=== PATIENT | female | born 1960 | race Caucasian/White ===

== ENCOUNTER 2017-07-01 22:59 | Emergency (ER) | payer OTHER ==
--- NOTE | 2017-07-02 01:08 | ER Document Report ---
ED Respiratory Problem - General Chief Complaint: Cough Stated Complaint: COUGH Time Seen by Provider: 07/02/17 00:17 Notes: Patient is a 57-year-old female who comes emergency department for chief complaint of cough and pain with cough. She states that she was referred here by urgent care. She states initially she was seen by urgent care, she had antibiotics (azithromycin) and she had been sick for a week with sore throat, cough, congestion. Over the left side of her chest with cough and she has to hold the area with cough because it has become sore. She denies shortness of breath, pain otherwise, lightheadedness, palpitations, nausea or vomiting. She is a type I diabetic, has an insulin pump, she denies any personal or family history of [place]. She denies any lower extremity swelling, recent travel, recent surgery, or history of blood clot. She does not smoke. She states she had a mastectomy but she has been cleared from cancer for years. TRAVEL OUTSIDE OF THE [place] IN LAST 30 DAYS: No - Related Data Allergies/Adverse Reactions: metoclopramide HCl [From Reglan] Allergy (Verified 07/01/17 23:00) prochlorperazine edisylate [From Compazine] Allergy (Verified 07/01/17 23:00) prochlorperazine maleate [From Compazine] Allergy (Verified 07/01/17 23:00) rofecoxib [From Vioxx] Allergy (Verified 07/01/17 23:00) Past Medical History - General Information source: Patient - Social History Smoking Status: Never Smoker Chew tobacco use (# tins/day): No Frequency of alcohol use: None Drug Abuse: None Lives with: Alone Family History: Reviewed & Not Pertinent Patient has suicidal ideation: No Patient has homicidal ideation: No Endocrine Medical History: Reports: Hx Diabetes Mellitus Type 1 Renal/ Medical History: Denies: Hx Peritoneal Dialysis Past Surgical History: Reports: Hx Mastectomy - left - Immunizations Hx Diphtheria, Pertussis, Tetanus Vaccination: Yes Review of Systems - Review of Systems Constitutional: No symptoms reported EENT: No symptoms reported Cardiovascular: See HPI Respiratory: See HPI Gastrointestinal: No symptoms reported Genitourinary: No symptoms reported Female Genitourinary: No symptoms reported Musculoskeletal: No symptoms reported Skin: No symptoms reported Hematologic/Lymphatic: No symptoms reported Neurological/Psychological: No symptoms reported Physical Exam - Vital signs Vitals: Temp Pulse Resp BP Pulse Ox 98 F 84 18 166/79 H 96 07/01/17 23:35 07/01/17 23:35 07/01/17 23:35 07/01/17 23:35 07/01/17 23:35 Interpretation: Normal - General General appearance: Appears well, Alert - HEENT Head: Normocephalic, Atraumatic Eyes: Normal Pupils: PERRL - Respiratory Respiratory status: No respiratory distress. No: Respiratory distress, Labored , Tachypnea Chest status: Tender - Tender over the left anterior and lateral chest wall, reproducible, otherwise unremarkable, Pain with cough Breath sounds: No: Decreased air movement, Wheezing Chest palpation: Normal - Cardiovascular Rhythm: Regular. No: Tachycardia Heart sounds: Normal auscultation, S1 appreciated, S2 appreciated Murmur: No Gallop: None auscultated Normal capillary refill: Yes - Abdominal Inspection: Normal Distension: No distension Bowel sounds: Normal Tenderness: Nontender Organomegaly: No organomegaly - Back Back: Normal, Nontender - Extremities General upper extremity: Normal inspection, Nontender, Normal color, Normal ROM , Normal temperature General lower extremity: Normal inspection, Nontender, Normal color, Normal ROM , Normal temperature, Normal weight bearing. No: Arianna's sign - Neurological Neuro grossly intact: Yes Cognition: Normal Orientation: AAOx4 [place]sie Coma Scale Eye Opening: Spontaneous [place] Coma Scale Verbal: Oriented [place] Coma Scale Motor: Obeys Commands [place] Coma Scale Total: 15 Speech: Normal Motor strength normal: LUE, RUE, LLE, RLE Sensory: Normal - Psychological Associated symptoms: Normal affect, Normal mood - Skin Skin Temperature: Warm Skin Moisture: Dry Skin Color: Normal Course - Re-evaluation Re-evalutation: Patient well-appearing on exam. Occasional cough which is painful but otherwise she denies any symptoms. EKG shows sinus rhythm with no signs of right heart strain, no T-wave inversions or ST segment changes in consecutive leads. Patient just had a normal chest x-ray reportedly. Patient is not tachycardic, vital signs unremarkable. I did offer to perform laboratory workup including d-dimer, however patient discussed this, she states she would prefer not to. Based on her examination she appears to be have bronchitis which is resolving, her lack of symptoms, and her lack of risk factors, instead of performing additional workup at this time I offered medication, patient declined most of them, discussed follow-up, discussed return precautions in detail. Patient states satisfaction and agreement with plan. - Vital Signs Vital signs: Temp Pulse Resp BP Pulse Ox 97.8 F 84 18 140/75 H 97 07/02/17 01:54 07/02/17 01:54 07/02/17 01:54 07/02/17 01:54 07/02/17 01:54 Discharge - Discharge Clinical Impression: Cough Upper respiratory infection Qualifiers: URI type: unspecified URI Qualified Code(s): J06.9 - Acute upper respiratory infection, unspecified Condition: Stable Disposition: HOME, SELF-CARE Additional Instructions: Your EKG is unremarkable. Your evaluation is consistent with you recovering from bronchitis. Consider the Tessalon for cough if needed, apply heat to the painful area, you can take Tylenol or ibuprofen for pain. Follow-up with primary care routinely. Return if you worsen in anyway including difficulty breathing, spiking fever, chest pain, vomiting, passing out, or any other concerning or worsening symptoms. Prescriptions: Benzonatate [Tessalon Perles 100 mg Capsule] 100 mg PO Q8HP PRN #20 capsule PRN Reason:
[2017-07-02 01:56] VITALS: BP 140/75
--- NOTE | 2017-07-02 08:07 | EKG REPORT ---
SEVERITY:- BORDERLINE ECG - SINUS RHYTHM PROBABLE LEFT ATRIAL ABNORMALITY : Confirmed by: Mendel Solomon MD 02-Jul-2017 08:06:31
== END 2017-07-02 01:55 | disposition home or self-care (01) ==
LOC: ER 22:59
DX: J06.9 Acute upper respiratory infection, unspecified (principal); R05 Cough; J02.9 Acute pharyngitis, unspecified; E10.9 Type 1 diabetes mellitus without complications; Z96.41 Presence of insulin pump (external) (internal); R09.89 Other specified symptoms and signs involving the circulatory and respiratory systems; Z88.8 Allergy status to other drugs, medicaments and biological substances
CPT/HCPCS: 93005; 93010; 99283